=== PATIENT | female | born 2005 | race Caucasian/White ===

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

== ENCOUNTER 2024-06-30 01:35 | Emergency (ER) | payer OTHER ==
[2024-06-30] MEDS: diphenhydrAMINE 50 MG Cap PO ONE (02:22)
== END 2024-06-30 02:34 | disposition home or self-care (01) ==
LOC: DL.ED 01:35
DX: L27.0 Generalized skin eruption due to drugs and medicaments taken internally (principal); T36.0X5A Adverse effect of penicillins, initial encounter; B27.90 Infectious mononucleosis, unspecified without complication; R16.1 Splenomegaly, not elsewhere classified; E03.9 Hypothyroidism, unspecified; Z86.16 Personal history of COVID-19; Z79.899 Other long term (current) drug therapy
CPT/HCPCS: 99282; Q0163